=== PATIENT | female | born 1990 | race Two or more races ===

== ENCOUNTER 2016-09-01 12:30 | Emergency (ER) | payer MEDICAID ==
[~2016-09-01] VITALS: Ht 154.9 cm; Wt 53.5 kg
[~2016-09-01 12:30] MED LIST: IBUPROFEN800 MG ORAL; NORCO 5-325 TA1 EACH ORAL; ONDANSETRON ODT4 MG ORAL; PRENATAL TABLE1 EAC2 PO; ZOFRAN4 MG ORAL
[2016-09-01] MEDS ORDERED: Mylanta II UD 30ml ORAL ONE (13:00)
[2016-09-01] MEDS ORDERED: Dicyclomine HCl 10mg/5ml oral soln ORAL ONE (13:00)
[2016-09-01] MEDS ORDERED: Lidocaine 2% Visc 15ml soln ORAL ONE (13:00)
[2016-09-01] MEDS ORDERED: Famotidine 20 MG/ 2ML VIAL IVP ONE (13:00)
--- NOTE | 2016-09-01 13:25 | Emergency Room Report ---
History of Present Illness General Chief Complaint: Nausea, Vomiting, and Diarrhea Source: Patient (Nicky Acuña) Present Illness HPI 25-year-old female presents to emergency Department complaining of nausea, vomiting, diarrhea since last night. Patient denies fevers or chills patient reports, weakness, and inability to keep down fluids. Patient states symptoms presented with nausea for several hours then sudden onset of vomiting and diarrhea denies blood in the vomit or stool, denies black tarry stools. Patient states she is 10 out of 10 pain in the lower abdomen. She denies . Patient denies history of STI. Denies CP, Palpitations, LOC, AMS, dizziness, Changes in Vision, Sensation, paresthesias, or a sudden severe headache. (Nicky Acuña) Allergies: Coded Allergies: No Known Allergies (Unverified , 01/29/13) Patient History Past Medical History: see triage record Past Surgical History: none Pertinent Family History: none Now: No Immunizations: UTD Reviewed Nursing Documentation: PMH: Agreed, PSxH: Agreed (Nicky Acuña) Nursing Documentation-PMH Past Medical History: No Stated History Hx Gastrointestinal Problems: Yes - Cholecystectomy (Nicky Acuña) Review of Systems All Other Systems: negative except mentioned in HPI (Nicky Acuña) Physical Exam Vital Signs Date Time Temp Pulse Resp B/P Pulse Ox O2 Delivery O2 Flow Rate FiO2 09/01/16 12:35 98.8 118 20 102/66 100 Sp02 EP Interpretation: reviewed, normal General Appearance: no apparent distress, alert, GCS 15, non-toxic Head: normocephalic, atraumatic Eyes: bilateral eye PERRL, bilateral eye normal inspection ENT: hearing grossly normal, normal pharynx, no angioedema, normal voice Neck: full range of motion, supple/symm/no masses Respiratory: chest non-tender, lungs clear, normal breath sounds, speaking full sentences Cardiovascular #1: regular rate, rhythm, no edema Cardiovascular #2: 2+ carotid (R), 2+ carotid (L), 2+ radial (R), 2+ radial (L) , 2+ dorsalis pedis (R), 2+ dorsalis pedis (L) Gastrointestinal: normal bowel sounds, non tender, soft, no guarding, no rebound, other - Medication tenderness to palpation in the right lower quadrant , positive McBurney's point tenderness, positive psoas sign of the right leg. No adnexal tenderness to palpation. Normal/hyperactive bowel sounds in all 4 quadrants. Rectal: deferred Genitourinary: normal inspection, no CVA tenderness Musculoskeletal: back normal, gait/station normal, normal range of motion, non- tender, no calf tenderness Neurologic: alert, oriented x3, responsive, motor strength/tone normal, sensory intact, speech normal Psychiatric: judgement/insight normal, memory normal, mood/affect normal, no suicidal/homicidal ideation Reflexes: 4+ bicep (R), 4+ bicep (L), 4+ tricep (R), 4+ tricep (L), 4+ knee (R) , 4+ knee (L) Skin: normal color, no rash, warm/dry, well hydrated Lymphatic: no adenopathy (Nicky AcuñaAEphraim) Medical Decision Making PA Attestation Dr. Barnes is my supervising Physician whom patient management has been discussed with. (Nicky Acuña P.AEphraim) Diagnostic Impression: Primary Impression: Gastroenteritis Additional Impression: Mild dehydration ER Course Pt. presents to the ED c/o 06/07 abdominal pain with nausea, vomiting , and diarrhea since last night. Ddx considered but are not limited to Diverticulitis, acute appy, diarrhea,UC, PUD, GE, pancreatitis, gallstone, ovarian torsion, ectopic , PID tubo-ovarian abscess.dehydration. Vital signs: pt. is afebrile, tachycardic at 118 H&PE are most consistent with probable GE with dehydration, however will R/O appendicitis due to significant pain at mcburnys point and positive psoas sign on the right leg ORDERS: -CBC: leukocytosis at 14.1 CMP: WNL : LIPASE: WNL -UA: consistent with contamination: moderate epithelial cells, few bacteria, no WBC's -URINE HCG:negative ED INTERVENTIONS: -PO zofran 4mg. -GI cocktail. -IV Pepcid - 1000cc NS -6mg Morphine - Pt able to tolerate oral fluid challenge after above interventions. DISCHARGE: At this time pt. is stable for d/c to home. Will provide printed patient care instructions, and any necessary prescriptions. Care plan and follow up instructions have been discussed with the patient prior to discharge. Labs Test 09/01/16 12:40 White Blood Count 14.1 K/UL (4.8-10.8) Red Blood Count 4.49 M/UL (4.20-5.40) Hemoglobin 13.5 G/DL (12.0-16.0) Hematocrit 42.1 % (37.0-47.0) Mean Corpuscular Volume 94 FL (80-99) Mean Corpuscular Hemoglobin 30.2 PG (27.0-31.0) Mean Corpuscular Hemoglobin Concent 32.1 G/DL (32.0-36.0) Red Cell Distribution Width 12.0 % (11.6-14.8) Platelet Count 275 K/UL (150-450) Mean Platelet Volume 7.7 FL (6.5-10.1) Neutrophils (%) (Auto) % (45.0-75.0) Lymphocytes (%) (Auto) % (20.0-45.0) Monocytes (%) (Auto) % (1.0-10.0) Eosinophils (%) (Auto) % (0.0-3.0) Basophils (%) (Auto) % (0.0-2.0) Differential Total Cells Counted 100 Neutrophils % (Manual) 94 % (45-75) Lymphocytes % (Manual) 4 % (20-45) Monocytes % (Manual) 0 % (1-10) Eosinophils % (Manual) 0 % (0-3) Basophils % (Manual) 0 % (0-2) Band Neutrophils 2 % (0-8) Platelet Estimate Adequate Platelet Morphology Normal Red Blood Cell Morphology Normal Urine Color Yellow Urine Appearance Slightly cloudy Urine pH 7 (4.5-8.0) Urine Specific [place] 1.005 (1.005-1.035) Urine Protein 2+ (NEGATIVE) Urine Glucose (UA) Negative (NEGATIVE) Urine Ketones Negative (NEGATIVE) Urine Occult Blood Negative (NEGATIVE) Urine Nitrite Negative (NEGATIVE) Urine Bilirubin Negative (NEGATIVE) Urine Urobilinogen 1 MG/DL (0.0-1.0) Urine Leukocyte Esterase 1+ (NEGATIVE) Urine RBC 0-2 /HPF (0 - 2) Urine WBC 2-4 /HPF (0 - 2) Urine Squamous Epithelial Cells Moderate /LPF (NONE/OCC) Urine Bacteria Few /HPF (NONE) Sodium Level 141 mEQ/L (135-145) Potassium Level 4.0 mEQ/L (3.4-4.9) Chloride Level 100 mEQ/L (98-107) Carbon Dioxide Level 26 mEQ/L (20-30) Anion Gap 15 (5-15) Blood Urea Nitrogen 13 mg/dL (7-23) Creatinine 0.7 mg/dL (0.5-0.9) Estimat Glomerular Filtration Rate > 60 mL/min (>60) Glucose Level 108 mg/dL (74-106) Calcium Level 8.8 mg/dL (8.6-10.2) Total Bilirubin 0.5 mg/dL (0.0-1.2) Aspartate Amino Transf (AST/SGOT) 20 U/L (5-40) Alanine Aminotransferase (ALT/SGPT) 21 U/L (3-33) Alkaline Phosphatase 59 U/L (35-104) Total Protein 7.4 g/dL (6.6-8.7) Albumin 4.3 g/dL (3.5-5.2) Globulin 3.1 g/dL Albumin/Globulin Ratio 1.3 (1.0-2.7) Lipase 32 U/L (< 60) Human Chorionic Gonadotropin, Quant < 1 mIU/mL (Nicky Acuña P.A.) Last Vital Signs Date Time Temp Pulse Resp B/P Pulse Ox O2 Delivery O2 Flow Rate FiO2 09/01/16 12:35 98.8 118 20 102/66 100 (Nicky Acuña P.A.) Last Vital Signs Date Time Temp Pulse Resp B/P Pulse Ox O2 Delivery O2 Flow Rate FiO2 09/01/16 16:59 99.3 94 15 102/64 100 Room Air (Los Barnes M.D.) Disposition: HOME, SELF-CARE Condition: Stable Scripts Dicyclomine Hcl* (BENTYL*) 10 Mg Capsule 10 MG ORAL FOUR TIMES A DAY for 3 Days, CAP Prov: Nicky Acuña.AEphraim 09/01/16 Ondansetron Odt* (ZOFRAN ODT*) 4 Mg Tab.rapdis 4 MG ORAL Q6H Y for Nausea & Vomiting, #30 TAB Prov: Nicky Acuña 09/01/16 Patient Instructions: Abdominal Pain, Adult, [id number] Additional Instructions: Take medications as directed. Follow up with PCP in 3-5 days Return sooner to ED if new symptoms occur, or current symptoms become worse. Nicky Acuña Sep 01, 2016 13:25 Los Barnes M.D. Sep 06, 2016 15:40
[2016-09-01] MEDS ORDERED: Morphine Sulfate 4mg/ml Inj IVP ONE (13:45)
[2016-09-01 14:00] LABS: MEAN CORPUSCULAR HEMOGLOBIN 30.2 PG (27.0-31.0); MEAN CORPUSCULAR HGB CONC 32.1 G/DL (32.0-36.0); MEAN CORPUSCULAR VOLUME 94 FL (80-99); MEAN PLATELET VOLUME 7.7 FL (6.5-10.1); PLATELET COUNT 275 K/UL (150-450); RED BLOOD COUNT 4.49 M/UL (4.20-5.40); WHITE BLOOD COUNT 14.1 K/UL (4.8-10.8)
[2016-09-01 14:03] LABS: APPEARANCE,URINE SLIGHTLY CLOUDY; KETONES,URINE NEGATIVE (NEGATIVE); LEUKOCYTE ESTERASE ,URINE 1+ (NEGATIVE); NITRITE,URINE NEGATIVE (NEGATIVE); PH,URINE 7 (4.5-8.0); PROTEIN,URINE 2+ (NEGATIVE); UROBILINOGEN,URINE 1 MG/DL (0.0-1.0)
[2016-09-01 14:15] VITALS: BP 107/71
[2016-09-01 14:19] LABS: ALANINE AMINOTRANSFERASE 21 U/L (3-33); ALBUMIN/GLOBULIN RATIO 1.3 (1.0-2.7); ANION GAP 15 (5-15); ASPARTATE AMINO TRANSFERASE 20 U/L (5-40); CALCIUM 8.8 mg/dL (8.6-10.2); CARBON DIOXIDE 26 mEQ/L (20-30); CHLORIDE 100 mEQ/L (98-107); CREATININE 0.7 mg/dL (0.5-0.9); GLOMERULAR FILTRATION RATE > 60 mL/min (>60); HEMOLYSIS 3; SODIUM 141 mEQ/L (135-145); TOTAL PROTEIN 7.4 g/dL (6.6-8.7)
[2016-09-01 14:29] LABS: BACTERIA,URINE FEW /HPF; RBC,URINE 0-2 /HPF (0 - 2); SQUAMOUS EPITHELIAL CELL,UR MODERATE /LPF (NONE/OCC)
[2016-09-01 15:09] LABS: BAND NEUTROPHILS % (MANUAL) 2 % (0-8); BASOPHILS % (MANUAL) 0 % (0-2); EOSINOPHILS % (MANUAL) 0 % (0-3); LYMPHOCYTES % (MANUAL) 4 % (20-45); NEUTROPHILS % (MANUAL) 94 % (45-75); PLATELET ESTIMATE ADEQUATE; PLATELET MORPHOLOGY NORMAL; TOTAL CELLS COUNTED 100
[2016-09-01] MEDS ORDERED: NKM (15:09)
[2016-09-01 15:55] VITALS: BP 99/61
[2016-09-01] MEDS ORDERED: BENTYL10 MG ORAL (16:41)
[2016-09-01] MEDS ORDERED: ZOFRAN ODT4 MG ORAL (16:41)
[2016-09-01 16:59] VITALS: BP_SYST 102; BP_SYST 99; BP_DIAS 61; BP_DIAS 64
--- NOTE | 2016-09-05 10:32 | Diagnostic Imaging Report ---
Clinical Indication: Right lower quadrant abdominal pain, vomiting, diarrhea, nausea Technique: No oral contrast utilized, per emergency room physician request IV administration nonionic contrast. Venous phase spiral acquisition obtained through the abdomen and pelvis. Multiplanar reconstructions were generated. Total dose length product 724 mGycm. CTDIvol(s) 14 mGy Comparison: 06/18/2016 Findings: Lack of oral contrast limits assessment of the GI tract. No evidence of diverticulosis or diverticulosis. The appendix is not definitely visualized, but there are no findings to suggest acute appendicitis. Portions of the colon and small bowel are somewhat fluid filled and somewhat prominent, but no eduin small bowel distention is evident. No free intraperitoneal air. There is trace free fluid in the pelvic cul-de-sac. The distal esophagus, stomach, duodenum are unremarkable. The liver is unremarkable. The gallbladder is surgically absent. Common bile duct is upper limits normal in caliber. The pancreas, spleen, adrenals, kidneys are unremarkable. No mesenteric or retroperitoneal mass or adenopathy. No pelvic mass or adenopathy. The included lung bases are clear. The bones are unremarkable Impression: Limited assessment of the GI tract, due to lack of enteric contrast administration Mildly prominent fluid-filled small bowel loops. Of doubtful significance, but could indicate mild enteritis changes No evidence of acute process otherwise. Evidence of prior cholecystectomy The CT scanner at [facility] is accredited by the [employer] and the scans are performed using protocols designed to limit radiation exposure to as low as reasonably achievable to attain images of sufficient resolution adequate for diagnostic evaluation.
== END 2016-09-01 17:00 | disposition home or self-care (01) ==
LOC: EMR 12:50
DX: K52.9 Noninfective gastroenteritis and colitis, unspecified (principal); E86.0 Dehydration; Z90.49 Acquired absence of other specified parts of digestive tract
CPT/HCPCS: 36415; 74177; 80053; 81003; 83690; 84702; 85007; 85025; 96374; 96375; 99284; J2270; J2405; Q9967; S0028

== ENCOUNTER 2017-04-24 14:27 | Emergency (ER) | payer MEDICAID ==
[~2017-04-24] VITALS: Ht 154.9 cm; Wt 54.4 kg
[~2017-04-24 14:27] MED LIST changes: +BENTYL10 MG ORAL; +NKM; +ZOFRAN ODT4 MG ORAL
[2017-04-24 14:34] VITALS: BP 117/82
[2017-04-24] MEDS ORDERED: PredniSONE 20mg tab ORAL ONE (15:00)
[2017-04-24] MEDS ORDERED: Metoclopramide 10mg/10ml Liq ORAL ONE (15:00)
[2017-04-24] MEDS ORDERED: Ketorolac 60mg Inj IM ONE (15:00)
--- NOTE | 2017-04-24 15:11 | Emergency Room Report ---
History of Present Illness General Chief Complaint: Headache Source: Patient (Nicky Acuña) Present Illness HPI 26 YO Female presents to the ED c/O 06/07 in severity ARAUJO x almost 1 month, denies N/V,F,C. Pt. states pulsatile ARAUJO to the left side of the head, denies dizziness, photophobia or changes to hearing. pt. states this am she is experiencing new onset left sided facial, numbness with tingling in the left UE. pt. denies trauma or fall. denies Hx of migraines. denies rashes or joint pain. denies tinnitus. denies recent illness. pt. denies weakness in the left arm. Denies frequency, dysuria, hematuria or . Denies CP, Palpitations , LOC, AMS, dizziness, Changes in Vision, Sensation, paresthesias, or a sudden severe headache. (Nicky Acuña) Allergies: Coded Allergies: No Known Allergies (Unverified , 01/29/13) Patient History Past Medical History: see triage record Past Surgical History: none Pertinent Family History: none Last Menstrual Period: 04/17/17 Now: No Immunizations: UTD Reviewed Nursing Documentation: PMH: Agreed, PSxH: Agreed (Nicky Acuña) Nursing Documentation-PMH Hx Gastrointestinal Problems: Yes - Cholecystectomy (Nicky Acuña) Review of Systems All Other Systems: negative except mentioned in HPI (Nicky Acuña) Physical Exam Vital Signs Date Time Temp Pulse Resp B/P (MAP) Pulse Ox O2 Delivery O2 Flow Rate FiO2 04/24/17 14:34 98.6 71 15 117/82 98 Room Air Sp02 EP Interpretation: reviewed, normal General Appearance: no apparent distress, alert, GCS 15, non-toxic Head: normocephalic, atraumatic Eyes: bilateral eye normal inspection, bilateral eye PERRL ENT: hearing grossly normal, normal voice Neck: full range of motion Respiratory: lungs clear, normal breath sounds, speaking full sentences Cardiovascular #1: regular rate, rhythm Cardiovascular #2: 2+ radial (R), 2+ radial (L) Musculoskeletal: back normal, gait/station normal, normal range of motion, non- tender Neurologic: alert, oriented x3, responsive, motor strength/tone normal, sensory intact, cerebellar normal, normal gait, speech normal, no pronator, other - mild left sided facial droop, asymmetrical raising of the eye brows, negative renner's sign. equal supervisor case loading strength Psychiatric: judgement/insight normal, memory normal, mood/affect normal Skin: normal color, no rash, warm/dry, well hydrated Lymphatic: no adenopathy (Nicky Acuña) Medical Decision Making PA Attestation Dr. Barnes is my supervising Physician whom patient management has been discussed with. (Nicky Acuña) Diagnostic Impression: Primary Impression: Blum's palsy Additional Impression: UTI (urinary tract infection) Qualified Codes: N30.00 - Acute cystitis without hematuria ER Course 26 YO Female presents to the ED c/O 06/07 in severity ARAUJO x almost 1 month, denies N/V,F,C. Pt. states pulsatile ARAUJO to the left side of the head, denies dizziness, photophobia or changes to hearing. pt. states this am she is experiencing new onset left sided facial, numbness with tingling in the left UE. pt. denies trauma or fall. denies Hx of migraines. denies rashes or joint pain. denies tinnitus. denies recent illness. pt. denies weakness in the left arm. Denies frequency, dysuria, hematuria or . Denies CP, Palpitations , LOC, AMS, dizziness, Changes in Vision, Sensation, paresthesias, or a sudden severe headache. Ddx considered but are not limited to migraine, SAH, CVA, [place] Palsy [place] motor Cerebri, Mass lesion, Cluster ARAUJO, Tension ARAUJO, Vital signs: are WNL, pt. is afebrile H&PE are most consistent with migraine headache ORDERS: - UA: elevated wbc's and Leuks with presence of bacteria, consistent with UTI -Urine Hcg: Negative ED INTERVENTIONS: - Reglan PO -IM Toradol -Prednisone PO DISCHARGE: At this time pt. is stable for d/c to home. Will provide printed patient care instructions, and any necessary prescriptions. Care plan and follow up instructions have been discussed with the patient prior to discharge. Pt to be D/C with Prednisone and Valacyclovir. Labs Test 04/24/17 15:50 Urine Color Pale yellow Urine Appearance Clear Urine pH 6.5 (4.5-8.0) Urine Specific [place] 1.015 (1.005-1.035) Urine Protein Negative (NEGATIVE) Urine Glucose (UA) Negative (NEGATIVE) Urine Ketones Negative (NEGATIVE) Urine Occult Blood Negative (NEGATIVE) Urine Nitrite Negative (NEGATIVE) Urine Bilirubin Negative (NEGATIVE) Urine Urobilinogen Normal MG/DL (0.0-1.0) Urine Leukocyte Esterase 1+ (NEGATIVE) Urine RBC 0-2 /HPF (0 - 2) Urine WBC 10-15 /HPF (0 - 2) Urine Squamous Epithelial Cells Few /LPF (NONE/OCC) Urine Bacteria Few /HPF (NONE) Urine HCG, Qualitative Negative (Nicky Acuña) ER Course I examined this patient and agree with the diagnosis and treatment plan. (Los Barnes M.D.) Last Vital Signs Date Time Temp Pulse Resp B/P (MAP) Pulse Ox O2 Delivery O2 Flow Rate FiO2 04/24/17 14:34 98.6 71 15 117/82 98 Room Air (Nicky Acuña) Disposition: HOME, SELF-CARE Condition: Stable Scripts Nitrofurantoin Monohyd/M-Cryst* (MACROBID 100 MG*) 100 Mg Capsule 100 MG ORAL EVERY 12 HOURS for 5 Days, #10 CAP Prov: Nicky Acuña 04/24/17 Valacyclovir Hcl* (VALTREX*) 500 Mg Tablet 500 MG ORAL TWICE A DAY for 7 Days, #14 TAB Prov: Nicky Acuña.A. 04/24/17 Prednisone* (PREDNISONE*) 20 Mg Tablet 40 MG ORAL DAILY for 5 Days, #10 TAB Prov: Nicky Acuña.A. 04/24/17 Patient Instructions: Blum Palsy, Urinary Tract Infection, [id number] Additional Instructions: Take medications as directed. Follow up with a Primary Care Provider in 3-5 days, even if your symptoms have resolved. --Please review list of primary care clinics, if you do not already have a primary care provider Return sooner to ED if new symptoms occur, or current symptoms become worse. - Please note that this Emergency Department Report was dictated using [employer] welding equipment mechanic technology software, occasionally this can lead to erroneous entry secondary to interpretation by the dictation equipment. Nicky Acuña Apr 24, 2017 15:11 Los Barnes M.D. Apr 26, 2017 04:15
[2017-04-24 16:26] LABS: APPEARANCE,URINE CLEAR; KETONES,URINE NEGATIVE (NEGATIVE); LEUKOCYTE ESTERASE ,URINE 1+ (NEGATIVE); NITRITE,URINE NEGATIVE (NEGATIVE); PH,URINE 6.5 (4.5-8.0); PROTEIN,URINE NEGATIVE (NEGATIVE); UROBILINOGEN,URINE NORMAL MG/DL (0.0-1.0)
[2017-04-24] MEDS ORDERED: PREDNISONE20 MG ORAL (16:32)
[2017-04-24] MEDS ORDERED: VALACYCLOVIR500 MG ORAL (16:32)
[2017-04-24 17:03] LABS: BACTERIA,URINE FEW /HPF; RBC,URINE 0-2 /HPF (0 - 2); SQUAMOUS EPITHELIAL CELL,UR FEW /LPF (NONE/OCC)
[2017-04-24] MEDS ORDERED: NITROFURANTOIN100 M2 ORAL (17:10)
[2017-04-24 17:19] VITALS: BP 121/83
== END 2017-04-24 17:19 | disposition home or self-care (01) ==
LOC: EMR 15:42
DX: G51.0 Bell's palsy (principal); N30.00 Acute cystitis without hematuria; Z90.49 Acquired absence of other specified parts of digestive tract
CPT/HCPCS: 81003; 81025; 87086; 87181; 96372; 99284